=== PATIENT | female | born 1965 | race African-American/Black ===

== ENCOUNTER 2017-09-21 19:38 | Emergency (ER) | payer BC | END 2017-09-21 20:48 | disposition home or self-care (01) | LOC: ER 19:38 | DX: G51.0 Bell's palsy (principal); I10 Essential (primary) hypertension; Z88.2 Allergy status to sulfonamides; Z88.0 Allergy status to penicillin; Z79.899 Other long term (current) drug therapy | CPT/HCPCS: 70450; 93005; 99284-25 ==